=== PATIENT | male | born 2005 | race Caucasian/White ===

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

== ENCOUNTER 2023-01-31 17:57 | Emergency (ER) | payer OTHER, SELFPAY ==
--- NOTE | 2023-01-31 18:07 | ED_ITS ---
HPI - General Adult General Chief complaint: General Medical <POLINA Harrell - Last Filed: 01/31/23 18:08> Stated complaint: Sore throat <POLINA Harrell Last Filed: 01/31/23 18:08> Time Seen by Provider: 01/31/23 18:51 <POLINA Harrell Last Filed: 01/31/23 18:08> Source: patient <POLINA Dior Last Filed: 01/31/23 19:01> Mode of arrival: ambulatory <POLINA Dior Last Filed: 01/31/23 19:01> Limitations: no limitations <POLINA Dior Last Filed: 01/31/23 19:01> History of Present Illness HPI narrative: 17-year-old male presents to the ER for evaluation of difficulty swallowing for the last 10 years. He states that sometimes he gags on his food because of difficulty getting it down. He states consistencies thick like peanut butter or the hardest to swallow. He has no trouble with liquids. He states overall he has been losing weight over the last several years. He has never seen a specialist for this or his regular doctor. He denies any sore throat or neck swelling. He feels a small bump on the right side of his neck that has not gotten any bigger. No overlying redness to it. No voice changes. No fever or chills. <POLINA Dior Last Filed: 01/31/23 19:01> MD complaint: Difficulty swallowing <POLINA Dior Last Filed: 01/31/23 19:01> Onset (ago): year(s) <POLINA Dior Last Filed: 01/31/23 19:01> Location: mouth and neck <POLINA Dior Last Filed: 01/31/23 19:01> Radiation: non-radiation <POLINA Dior Last Filed: 01/31/23 19:01> Severity: moderate <POLINA Dior Last Filed: 01/31/23 19:01> Pain Consistency: intermittent <POLINA Dior Last Filed: 01/31/23 19:01> Relieving factors: none <POLINA Dior - Last Filed: 01/31/23 19:01> Exacerbating factors: eating <POLINA Dior - Last Filed: 01/31/23 19:01> Associated symptoms: denies other symptoms <POLINA Dior - Last Filed: 01/31/23 19:01> Treatments prior to arrival: none <POLINA Dior - Last Filed: 01/31/23 19:01> Related Data Home medications: Previous Rx's Medication Instructions Recorded amoxicillin 500 mg tablet 1,000 mg PO Q8H 7 days #42 tabs 10/13/21 ibuprofen 600 mg tablet 600 mg PO Q8H PRN pain #14 tabs 10/13/21 hokqhugd-agpcuopdn-tjcufhiau 3.5 4 drp otic (ear) left Q8H 10 days 10/13/21 mg-10,000 unit/mL-1 % ear #10 mL drops,susp <POLINA Harrell - Last Filed: 01/31/23 18:08> Allergies/adverse reactions: Allergies Allergy/AdvReac Type Severity Reaction Status Date / Time No Known Allergies Allergy Unverified 07/21/20 17:08 <POLINA Harrell - Last Filed: 01/31/23 18:08> Review of Systems Review of Systems: Yes all other systems are reviewed and are negative <POLINA Dior - Last Filed: 01/31/23 19:01> [facility] Past Medical History Medical History: Medical History (Updated 01/31/23 @ 18:56 by POLINA Dior) No known health problems <POLINA Harrell - Last Filed: 01/31/23 18:08> Social History Social History: Social History Advance Directives: No Advance Directives Information Provided: No <POLINA Harrell Last Filed: 01/31/23 18:08> Physical Exam ED Vital Signs: Vital Signs - 24 hr 01/31/23 18:13 Temperature 98.6 F Pulse Rate 60 Respiratory Rate 16 Blood Pressure 144/81 H Pulse Oximetry 98 Oxygen Delivery Method Room Air BMI result Body Mass Index 16.7 <POLINA Harrell Last Filed: 01/31/23 18:08> Vital Signs - 24 hr 01/31/23 18:13 Temperature 98.6 F Pulse Rate 60 Respiratory Rate 16 Blood Pressure 144/81 H Pulse Oximetry 98 Oxygen Delivery Method Room Air BMI result Body Mass Index 16.7 <POLINA Dior Last Filed: 01/31/23 19:01> Appearance: Alert. Oriented X3. No acute distress. HEENT: normal inspection. PERRLA, EOMI, pharynx normal, no swelling of tonsils. uvula midline. normal voice handling secretions normally. Neck: normal inspecion, trachea midline, small <1cm LN on the anterior cervical chain on the right. normal palpation of the anterior neck, no masses CVS: Normal heart rate and rhythm. Pulses normal. Respiratory: No respiratory distress. Skin: Skin warm and dry. Normal skin color. Normal skin turgor. No rashes. Extremities: normal inspection x4. Neuro: Oriented X 3. No motor deficit. No sensory deficit. <POLINA Dior - Last Filed: 01/31/23 19:01> Course Course Course Narrative: This is an RME: Additional HPI, ROS, PE not included below will be deferred to primary provider. 17-year-old male presents with difficulty swallowing since the age of 7 worsening over the past few days. Telling me he is having difficulties with solids however he is okay with liquids. Reports slight discomfort in the throat particularly on the right-hand side. Physical exam bilateral tonsils edematous no exudates. Midline uvula. Speaking in full sentences. Appears comfortable Will order basic labs, viral testing. <POLINA Harrell - Last Filed: 01/31/23 18:08> Medical Decision Making Medical Decision Making MDM Narrative: 17-year-old male presenting with acute on chronic dysphagia. His physical exam is unremarkable. His lab work is unremarkable. He tested negative for viral and bacterial studies today. He is able to tolerate liquids without issue. He states eating certain solids makes him gag. At this time there is no emergent need for imaging of the neck. He was encouraged follow-up with GI for further evaluation as well as his PCP. All questions were answered he is stable for discharge home. <POLINA Dior - Last Filed: 01/31/23 19:01> Differential Diagnosis Differential Diagnoses: The differential diagnosis associated with the presentation includes <POLINA Dior - Last Filed: 01/31/23 19:01> Dysphagia, esophageal dysmotility, esophageal spasm, esophageal mass, inflammatory disorder, rheumatologic disorder, anxiety <POLINA Dior - Last Filed: 01/31/23 19:01> Lab Data MDM Lab Attestation statement: I reviewed the patient's lab results. <POLINA Dior - Last Filed: 01/31/23 19:01> Unremarkable lab workup <POLINA Dior - Last Filed: 01/31/23 19:01> Result Diagrams: 01/31/23 18:11 01/31/23 18:11 <POLINA Harrell - Last Filed: 01/31/23 18:08> Labs: Lab Results 01/31/23 01/31/23 01/31/23 Range/Units 18:05 18:05 18:05 WBC (4.8-10.8) X10*3/uL RBC (4.60-5.80) X10*6/uL Hgb (14.0-18.0) g/dl Hct (42.0-52.0) % MCV (80.0-98.0) fL MCH (27.0-33.0) pg MCHC (31.0-36.0) g/dl RDW (11.0-16.0) % Plt Count (160-400) X10*3/uL MPV (9.4-12.4) fL Immature Gran % (Auto) (0.0-0.4) % Neut % (Auto) (45-73) % Lymph % (Auto) (20-40) % Caswell % (Auto) (2-11) % Eos % (Auto) (0-4) % Baso % (Auto) (0-2) % Lymph # (Auto) (1.2-4.9) X10*3/uL Caswell # (Auto) (0.1-1.2) X10*3/uL Eos # (Auto) (0.0-0.4) X10*3/uL Baso # (Auto) (0.0-0.2) X10*3/uL Abs Immat Gran (auto) (0.00-0.03) X10*3/uL Absolute Neuts (auto) (2.0-8.3) x10*3/uL Absolute Nucleated RBC (0.0-0.012) X10*3/uL Nucleated RBC % (auto) (0.0-0.2) /100WBC Sodium (135-145) mmol/L Potassium (3.3-5.1) mmol/L Chloride (96-108) mmol/L Carbon Dioxide (22-29) mmol/L Anion Gap (12-20) BUN (9-16) mg/dL Creatinine (0.5-1.4) mg/dL Estim Creat Clear Calc Estimated GFR Random Glucose (60-115) mg/dL Calcium (8.4-10.2) mg/dL Total Bilirubin (0.0-1.0) mg/dL AST (5-37) U/L ALT (0-40) U/L Alkaline Phosphatase (39-117) U/L Total Protein (6.5-8.0) g/dL Albumin (3.5-5.0) g/dL COVID-19 ([facility]) Negative (Negative) COVID-19 Clin Com See Note Monoscreen (Negative) Influenza Type A ([facility]) Negative (Negative) Influenza Type B (ROBERT) Negative (Negative) Influenza A & B Note See Note S. pyogenes GrpA ROBERT Negative (Negative) 01/31/23 01/31/23 01/31/23 Range/Units 18:05 18:11 18:11 WBC 7.6 (4.8-10.8) X10*3/uL RBC 5.30 (4.60-5.80) X10*6/uL Hgb 14.4 (14.0-18.0) g/dl Hct 43.8 (42.0-52.0) % MCV 82.6 (80.0-98.0) fL MCH 27.2 (27.0-33.0) pg MCHC 32.9 (31.0-36.0) g/dl RDW 14.0 (11.0-16.0) % Plt Count 245 (160-400) X10*3/uL MPV 9.3 L (9.4-12.4) fL Immature Gran % (Auto) 0.3 (0.0-0.4) % Neut % (Auto) 53.7 (45-73) % Lymph % (Auto) 34.4 (20-40) % Caswell % (Auto) 9.0 (2-11) % Eos % (Auto) 1.9 (0-4) % Baso % (Auto) 0.7 (0-2) % Lymph # (Auto) 2.6 (1.2-4.9) X10*3/uL Caswell # (Auto) 0.7 (0.1-1.2) X10*3/uL Eos # (Auto) 0.1 (0.0-0.4) X10*3/uL Baso # (Auto) 0.1 (0.0-0.2) X10*3/uL Abs Immat Gran (auto) 0.02 (0.00-0.03) X10*3/uL Absolute Neuts (auto) 4.1 (2.0-8.3) x10*3/uL Absolute Nucleated RBC 0.000 (0.0-0.012) X10*3/uL Nucleated RBC % (auto) 0.0 (0.0-0.2) /100WBC Sodium 140 (135-145) mmol/L Potassium 3.7 (3.3-5.1) mmol/L Chloride 105 (96-108) mmol/L Carbon Dioxide 25 (22-29) mmol/L Anion Gap 14 (12-20) BUN 10 (9-16) mg/dL Creatinine 0.87 (0.5-1.4) mg/dL Estim Creat Clear Calc 113.9 Estimated GFR > 60 Random Glucose 85 (60-115) mg/dL Calcium 9.5 (8.4-10.2) mg/dL Total Bilirubin 1.1 H (0.0-1.0) mg/dL AST 26 (5-37) U/L ALT 25 (0-40) U/L Alkaline Phosphatase 86 (39-117) U/L Total Protein 6.8 (6.5-8.0) g/dL Albumin 4.7 (3.5-5.0) g/dL COVID-19 ([facility]) (Negative) COVID-19 Clin Com Monoscreen Negative (Negative) Influenza Type A ([facility]) (Negative) Influenza Type B ([facility]ERT) (Negative) Influenza A & B Note S. pyogenes GrpA ROBERT (Negative) <POLINA Harrell - Last Filed: 01/31/23 18:08> Lab Results 01/31/23 01/31/23 01/31/23 Range/Units 18:05 18:05 18:05 WBC (4.8-10.8) X10*3/uL RBC (4.60-5.80) X10*6/uL Hgb (14.0-18.0) g/dl Hct (42.0-52.0) % MCV (80.0-98.0) fL MCH (27.0-33.0) pg MCHC (31.0-36.0) g/dl RDW (11.0-16.0) % Plt Count (160-400) X10*3/uL MPV (9.4-12.4) fL Immature Gran % (Auto) (0.0-0.4) % Neut % (Auto) (45-73) % Lymph % (Auto) (20-40) % Caswell % (Auto) (2-11) % Eos % (Auto) (0-4) % Baso % (Auto) (0-2) % Lymph # (Auto) (1.2-4.9) X10*3/uL Caswell # (Auto) (0.1-1.2) X10*3/uL Eos # (Auto) (0.0-0.4) X10*3/uL Baso # (Auto) (0.0-0.2) X10*3/uL Abs Immat Gran (auto) (0.00-0.03) X10*3/uL Absolute Neuts (auto) (2.0-8.3) x10*3/uL Absolute Nucleated RBC (0.0-0.012) X10*3/uL Nucleated RBC % (auto) (0.0-0.2) /100WBC Sodium (135-145) mmol/L Potassium (3.3-5.1) mmol/L Chloride (96-108) mmol/L Carbon Dioxide (22-29) mmol/L Anion Gap (12-20) BUN (9-16) mg/dL Creatinine (0.5-1.4) mg/dL Estim Creat Clear Calc Estimated GFR Random Glucose (60-115) mg/dL Calcium (8.4-10.2) mg/dL Total Bilirubin (0.0-1.0) mg/dL AST (5-37) U/L ALT (0-40) U/L Alkaline Phosphatase (39-117) U/L Total Protein (6.5-8.0) g/dL Albumin (3.5-5.0) g/dL COVID-19 ([facility]) Negative (Negative) COVID-19 Clin Com See Note Monoscreen (Negative) Influenza Type A ([facility]) Negative (Negative) Influenza Type B ([facility]ERT) Negative (Negative) Influenza A & B Note See Note S. pyogenes GrpA ROBERT Negative (Negative) 01/31/23 01/31/23 01/31/23 Range/Units 18:05 18:11 18:11 WBC 7.6 (4.8-10.8) X10*3/uL RBC 5.30 (4.60-5.80) X10*6/uL Hgb 14.4 (14.0-18.0) g/dl Hct 43.8 (42.0-52.0) % MCV 82.6 (80.0-98.0) fL MCH 27.2 (27.0-33.0) pg MCHC 32.9 (31.0-36.0) g/dl RDW 14.0 (11.0-16.0) % Plt Count 245 (160-400) X10*3/uL MPV 9.3 L (9.4-12.4) fL Immature Gran % (Auto) 0.3 (0.0-0.4) % Neut % (Auto) 53.7 (45-73) % Lymph % (Auto) 34.4 (20-40) % Caswell % (Auto) 9.0 (2-11) % Eos % (Auto) 1.9 (0-4) % Baso % (Auto) 0.7 (0-2) % Lymph # (Auto) 2.6 (1.2-4.9) X10*3/uL Caswell # (Auto) 0.7 (0.1-1.2) X10*3/uL Eos # (Auto) 0.1 (0.0-0.4) X10*3/uL Baso # (Auto) 0.1 (0.0-0.2) X10*3/uL Abs Immat Gran (auto) 0.02 (0.00-0.03) X10*3/uL Absolute Neuts (auto) 4.1 (2.0-8.3) x10*3/uL Absolute Nucleated RBC 0.000 (0.0-0.012) X10*3/uL Nucleated RBC % (auto) 0.0 (0.0-0.2) /100WBC Sodium 140 (135-145) mmol/L Potassium 3.7 (3.3-5.1) mmol/L Chloride 105 (96-108) mmol/L Carbon Dioxide 25 (22-29) mmol/L Anion Gap 14 (12-20) BUN 10 (9-16) mg/dL Creatinine 0.87 (0.5-1.4) mg/dL Estim Creat Clear Calc 113.9 Estimated GFR > 60 Random Glucose 85 (60-115) mg/dL Calcium 9.5 (8.4-10.2) mg/dL Total Bilirubin 1.1 H (0.0-1.0) mg/dL AST 26 (5-37) U/L ALT 25 (0-40) U/L Alkaline Phosphatase 86 (39-117) U/L Total Protein 6.8 (6.5-8.0) g/dL Albumin 4.7 (3.5-5.0) g/dL COVID-19 ([facility]) (Negative) COVID-19 Clin Com Monoscreen Negative (Negative) Influenza Type A ([facility]) (Negative) Influenza Type B ([facility]) (Negative) Influenza A & B Note S. pyogenes GrpA ROBERT (Negative) <POLINA Dior - Last Filed: 01/31/23 19:01> Critical Care Time Critical Care Time Critical Care Time: No <POLINA Dior - Last Filed: 01/31/23 19:01> Discharge Plan Discharge Clinical Impression: Dysphagia <POLINA Harrell - Last Filed: 01/31/23 18:08> Patient Disposition: Home, Self-Care <POLINA Harrell - Last Filed: 01/31/23 18:08> Instructions: Dysphagia (ED), Soft Diet (ED) <POLINA Harrell - Last Filed: 01/31/23 18:08> Additional Instructions: Your lab workup today was unremarkable. Your negative for COVID, flu, strep, mononucleosis. Recommend following up with the GI specialist for further evaluation of your swallowing issues. Recommend sticking to a soft diet. Recommend protein shakes to maintain your caloric intake. Stay hydrated. If you develop new or worsening symptoms call 911 or come back to the ER for further evaluation. <POLINA Harrell - Last Filed: 01/31/23 18:08> Prescriptions: No Action xsrklwej-icybqftpt-WL 3.5-10,000-1 mg/mL-unit/mL-% drops,suspension 4 drp otic (ear) left Q8H 10 Days Qty: 10 0RF amoxicillin 500 mg tablet 1,000 mg PO Q8H 7 Days Qty: 42 0RF ibuprofen 600 mg tablet 600 mg PO Q8H PRN (Reason: pain) Qty: 14 0RF <POLINA Harrell - Last Filed: 01/31/23 18:08> Referrals: [facility] [place]Provider Group] (dysphagia w/ weight loss) <POLINA Harrell - Last Filed: 01/31/23 18:08>
[2023-01-31 18:08] VITALS: BMI 16.7
[2023-01-31 18:13] VITALS: BP 144/81; PULSE 60; RESP 16; TEMP 37; O2SAT 98
[2023-01-31 18:16] LABS: MANUAL DIFF FLAG NO
[2023-01-31 18:17] LABS: Basophils Absolute Auto 0.1 X10*3/uL (0.0-0.2); Basophils Percent Auto 0.7 % (0-2); Eosinophils Absolute Auto 0.1 X10*3/uL (0.0-0.4); Eosinophils Percent Auto 1.9 % (0-4); Hematocrit 43.8 % (42.0-52.0); Hemoglobin 14.4 g/dl (14.0-18.0); Imm Gran Abs Auto 0.02 X10*3/uL (0.00-0.03); Imm Gran Pct Auto 0.3 % (0.0-0.4); Lymphocytes Absolute Auto 2.6 X10*3/uL (1.2-4.9); Lymphocytes Percent Auto 34.4 % (20-40); Mean Corpuscular HGB Conc 32.9 g/dl (31.0-36.0); Mean Corpuscular Hemoglobin 27.2 pg (27.0-33.0); Mean Corpuscular Volume 82.6 fL (80.0-98.0); Mean Platelet Volume 9.3 fL (9.4-12.4); Monocytes Absolute Auto 0.7 X10*3/uL (0.1-1.2); Neutrophils Absolute Auto 4.1 x10*3/uL (2.0-8.3); Neutrophils Percent Auto 53.7 % (45-73); Platelet Count 245 X10*3/uL (160-400); White Blood Count 7.6 X10*3/uL (4.8-10.8)
[2023-01-31 18:29] LABS: IDNOW Serial# 08D9AD1C; Monotest Negative (Negative); Strep A Nucleic Acid Negative (Negative)
[2023-01-31 18:33] LABS: Alanine Aminotransferase 25 U/L (0-40); Albumin Level 4.7 g/dL (3.5-5.0); Alkaline Phosphatase 86 U/L (39-117); Anion Gap 14 (12-20); Aspartate Amino Transferase 26 U/L (5-37); Bilirubin Total 1.1 mg/dL (0.0-1.0); Blood Urea Nitrogen 10 mg/dL (9-16); Calcium 9.5 mg/dL (8.4-10.2); Carbon Dioxide 25 mmol/L (22-29); Chloride 105 mmol/L (96-108); Creatinine Clr Calc Pharmacy 113.9; Estimated Glomerular Filt Rate > 60; Glucose Random 85 mg/dL (60-115); Potassium 3.7 mmol/L (3.3-5.1); Sodium 140 mmol/L (135-145); Total Protein 6.8 g/dL (6.5-8.0)
[2023-01-31 18:37] LABS: COVID-19 Test Negative (Negative); IDNOW Serial# BCCEAD1C
[2023-01-31 18:38] LABS: IDNOW Serial# 9DB6401D; Influenza A Negative (Negative); Influenza B2 Negative (Negative)
== END 2023-01-31 19:03 | disposition home or self-care (01) ==
PROVIDERS: Physician Assistant; Emergency Provider Emergency Medicine Emergency Medical Services
DX: J02.8 Acute pharyngitis due to other specified organisms (principal); R13.10 Dysphagia, unspecified; Z20.822 Contact with and (suspected) exposure to COVID-19; Z20.828 Contact with and (suspected) exposure to other viral communicable diseases; Z79.899 Other long term (current) drug therapy
CPT/HCPCS: 36415; 80053; 85025; 86308; 87502; 87635; 87651; 99282; 99283

== ENCOUNTER 2023-03-29 16:00 | Emergency (ER) | payer OTHER, SELFPAY ==
[2023-03-29 16:31] VITALS: BP 134/71; PULSE 72; RESP 18; TEMP 36.2; O2SAT 99; BMI 19.9
--- NOTE | 2023-03-29 16:31 | ED.GENADULT ---
HPI - General Adult General Chief complaint: General Medical Stated complaint: abd pain/anxiety Time Seen by Provider: 03/29/23 17:44 Source: patient Mode of arrival: ambulatory Limitations: no limitations History of Present Illness HPI narrative: Patient is history of anxiety complaining of today no vomiting at this time feels hungry no fever no chills no urine complaints complaining of small lymph node in the neck also bilateral groin area no fever no chills no urine symptoms patient feels hungry does have increased anxiety Related Data Previous Rx's Medication Instructions Recorded amoxicillin 500 mg tablet 1,000 mg PO Q8H 7 days #42 tabs 10/13/21 ibuprofen 600 mg tablet 600 mg PO Q8H PRN pain #14 tabs 10/13/21 pcvehkix-cnkinofvf-yikerjfpn 3.5 4 drp otic (ear) left Q8H 10 days 10/13/21 mg-10,000 unit/mL-1 % ear #10 mL drops,susp hydroxyzine HCl 25 mg tablet 25 mg PO TID PRN anxiety #30 tabs 03/29/23 Allergies Allergy/AdvReac Type Severity Reaction Status Date / Time No Known Allergies Allergy Unverified 07/21/20 17:08 Review of Systems Review of Systems: Yes all other systems are reviewed and are negative PMFSH Past Medical History Medical History No known health problems Social History Social History Smoked in Last 30 Days: No Advance Directives: No Advance Directives Information Provided: No Physical Exam ED Vital Signs: Vital Signs - 24 hr 03/29/23 16:31 Temperature 97.1 F Pulse Rate 72 Respiratory Rate 18 Blood Pressure 134/71 Pulse Oximetry 99 Oxygen Delivery Method Room Air BMI result Body Mass Index 19.9 Appearance: Alert. Oriented X3. No acute distress. Anxious ENT: Pharynx normal. Oral Mucosa moist Neck: Normal inspection. Neck supple. CVS: Normal heart rate and rhythm. Pulses normal. Respiratory: No respiratory distress. Equal air entry bilateral, no wheezing/rales/rhonchi Abdomen: Soft and nontender no rebound tenderness or guard mild discomfort in mid abdomen, Bowel sounds are present, no mass palpable, no CVA tenderness Skin: Skin warm and dry. Normal skin color. Normal skin turgor. Extremities: No lower extremity edema. No calf tenderness bilateral inguinal lymph nodes less than 1 cm nontender Neuro: Oriented X 3. No motor deficit. Course Course Course Narrative: RME performed by [place] PA-C. Patient is a 17 year old assigned male at presenting to the emergency department with abdominal pain. Labs ordered. Patient placed back in the waiting room pending room availability and results. Medications Administered Discontinued Medications Generic Name Dose Route Start Last Admin Trade Name Faith PRN Reason Stop Dose Admin Hydroxyzine HCl 25 mg 03/29/23 17:52 03/29/23 18:24 Hydroxyzine Hcl 25 Mg Tablet PO 03/29/23 17:53 25 mg ONCE ONE Administration Medical Decision Making Medical Decision Making MDM Narrative: Patient has stable labs symptoms likely from anxiety Lab Data MDM Lab Attestation statement: I reviewed the patient's lab results. 03/29/23 16:49 03/29/23 16:49 Labs: Lab Results 03/29/23 03/29/23 03/29/23 Range/Units 16:49 16:49 16:49 WBC 7.0 (4.8-10.8) X10*3/uL RBC 5.83 H (4.60-5.80) X10*6/uL Hgb 16.4 (14.0-18.0) g/dl Hct 47.8 (42.0-52.0) % MCV 82.0 (80.0-98.0) fL MCH 28.1 (27.0-33.0) pg MCHC 34.3 (31.0-36.0) g/dl RDW 13.2 (11.0-16.0) % Plt Count 249 (160-400) X10*3/uL MPV 9.8 (9.4-12.4) fL Immature Gran % (Auto) 0.4 (0.0-0.4) % Neut % (Auto) 68.4 (45-73) % Lymph % (Auto) 23.2 (20-40) % [place] % (Auto) 7.0 (2-11) % Eos % (Auto) 0.3 (0-4) % Baso % (Auto) 0.7 (0-2) % Lymph # (Auto) 1.6 (1.2-4.9) X10*3/uL [place] # (Auto) 0.5 (0.1-1.2) X10*3/uL Eos # (Auto) 0.0 (0.0-0.4) X10*3/uL Baso # (Auto) 0.1 (0.0-0.2) X10*3/uL Abs Immat Gran (auto) 0.03 (0.00-0.03) X10*3/uL Absolute Neuts (auto) 4.8 (2.0-8.3) x10*3/uL Absolute Nucleated RBC 0.000 (0.0-0.012) X10*3/uL Nucleated RBC % (auto) 0.0 (0.0-0.2) /100WBC Sodium 141 (135-145) mmol/L Potassium 5.0 D (3.3-5.1) mmol/L Chloride 106 (96-108) mmol/L Carbon Dioxide 25 (22-29) mmol/L Anion Gap 15 (12-20) BUN 13 (9-16) mg/dL Creatinine 0.94 (0.5-1.4) mg/dL Estim Creat Clear Calc 125.5 Estimated GFR > 60 Random Glucose 103 (60-115) mg/dL Calcium 10.5 H D (8.4-10.2) mg/dL Magnesium 2.2 (1.6-2.6) mg/dL Total Bilirubin 1.8 H (0.0-1.0) mg/dL AST 19 (5-37) U/L ALT 18 (0-40) U/L Alkaline Phosphatase 94 (39-117) U/L Total Protein 7.8 (6.5-8.0) g/dL Albumin 5.1 H (3.5-5.0) g/dL Urine Color Dark Yellow Urine Appearance Clear Urine pH 5.5 (5.0-9.0) Ur Specific [place] >= 1.030 H (1.005-1.025) Urine Protein Negative (Neg-Trace) mg/dL Urine Glucose (UA) Negative (Negative) mg/dL Urine Ketones 80 (Negative) mg/dL Urine Blood Negative (Negative) Urine Nitrite Negative (Negative) Ur Leukocyte Esterase Trace H (Negative) Urine RBC 0-2 (0-2) /HPF Urine WBC 0-5 (0-5) /HPF Ur Squamous Epith Cells 0-2 (0-2) /HPF Urine Bacteria None Seen (None Seen) Hyaline Casts 3-5 (0-2) /LPF Discharge Plan Discharge Clinical Impression: Anxiety Patient Disposition: Home, Self-Care Instructions: Anxiety (ED) Additional Instructions: Take medication for anxiety as prescribed Follow the PCP as scheduled Prescriptions: New hydroxyzine HCl 25 mg tablet 25 mg PO TID PRN (Reason: anxiety) Qty: 30 0RF No Action othkjucd-tuqzqdivh-KW 3.5-10,000-1 mg/mL-unit/mL-% drops,suspension 4 drp otic (ear) left Q8H 10 Days Qty: 10 0RF amoxicillin 500 mg tablet 1,000 mg PO Q8H 7 Days Qty: 42 0RF ibuprofen 600 mg tablet 600 mg PO Q8H PRN (Reason: pain) Qty: 14 0RF
[2023-03-29 16:53] LABS: MANUAL DIFF FLAG NO
[2023-03-29 16:57] LABS: Basophils Absolute Auto 0.1 X10*3/uL (0.0-0.2); Basophils Percent Auto 0.7 % (0-2); Eosinophils Percent Auto 0.3 % (0-4); Hematocrit 47.8 % (42.0-52.0); Hemoglobin 16.4 g/dl (14.0-18.0); Imm Gran Abs Auto 0.03 X10*3/uL (0.00-0.03); Imm Gran Pct Auto 0.4 % (0.0-0.4); Lymphocytes Absolute Auto 1.6 X10*3/uL (1.2-4.9); Lymphocytes Percent Auto 23.2 % (20-40); Mean Corpuscular HGB Conc 34.3 g/dl (31.0-36.0); Mean Corpuscular Hemoglobin 28.1 pg (27.0-33.0); Mean Platelet Volume 9.8 fL (9.4-12.4); Monocytes Absolute Auto 0.5 X10*3/uL (0.1-1.2); Neutrophils Absolute Auto 4.8 x10*3/uL (2.0-8.3); Neutrophils Percent Auto 68.4 % (45-73); Platelet Count 249 X10*3/uL (160-400); Red Blood Count 5.83 X10*6/uL (4.60-5.80); Red Cell Distribution Width 13.2 % (11.0-16.0)
[2023-03-29 16:59] LABS: Appearance Urine Clear; Color Urine Dark Yellow; Glucose Urine UA Negative (Negative); Leukocyte Esterase Urine Trace (Negative); Nitrite Urine Negative (Negative); PH 5.5 (5.0-9.0); Specific Gravity - Urine >= 1.030 (1.005-1.025); UMIC TRIGGER UACC YES; Urine Blood Negative (Negative); Urine Ketones 80 mg/dL (Negative); Urine Protein Negative (Neg-Trace)
[2023-03-29 17:02] LABS: Bacteria Urine None Seen (None Seen); RBC Urine 0-2 /HPF (0-2); Squamous Epithelial Cell Urine 0-2 /HPF (0-2); WBC Urine 0-5 /HPF (0-5)
[2023-03-29 17:15] LABS: Alanine Aminotransferase 18 U/L (0-40); Albumin Level 5.1 g/dL (3.5-5.0); Alkaline Phosphatase 94 U/L (39-117); Anion Gap 15 (12-20); Aspartate Amino Transferase 19 U/L (5-37); Bilirubin Total 1.8 mg/dL (0.0-1.0); Blood Urea Nitrogen 13 mg/dL (9-16); Calcium 10.5 mg/dL (8.4-10.2); Carbon Dioxide 25 mmol/L (22-29); Chloride 106 mmol/L (96-108); Creatinine Clr Calc Pharmacy 125.5; Estimated Glomerular Filt Rate > 60; Glucose Random 103 mg/dL (60-115); Magnesium 2.2 mg/dL (1.6-2.6); Sodium 141 mmol/L (135-145); Total Protein 7.8 g/dL (6.5-8.0)
[2023-03-29] MEDS: hydrOXYzine HCL 25 MG TABLET PO (18:24)
--- NOTE | 2023-03-29 18:26 | PC.NURSE ---
Pt came today with concerns about still not being able to swallow, and new lumps on his neck and groin. Provider prescribed anxiety medications, pt encouraged to follow up outpt.
== END 2023-03-29 18:38 | disposition home or self-care (01) ==
PROVIDERS: Physician Assistant Medical; Emergency Provider Internal Medicine
DX: F41.9 Anxiety disorder, unspecified (principal)
CPT/HCPCS: 36415; 80053; 81001; 81003; 83735; 85025; 99283; 99284

== ENCOUNTER 2023-04-22 11:06 | Outpatient (REF) | payer OTHER, SELFPAY ==
[2023-04-22 13:03] LABS: Thyroid Stimulating Hormone 1.06 uIU/mL (0.32-4.0)
[2023-04-23 18:24] LABS: Transglutaminase IgA <1.0 U/mL
[2023-04-24 04:18] LABS: HBc Num1 0.04 S/CO (0.00-0.79); HBsAGNum1 0.36 S/CO (0.00-0.99); HIV AB/AG Nonreactive (Nonreactive); HIV Num 1 0.16 S/CO (0.00-0.99); Hepatitis B Core Antibody Nonreactive (Nonreactive); Hepatitis B Surface Antigen Negative (Negative); ~HepC Num1 0.07 S/CO (0.00-0.79); ~Hepatitis A Antibody IgM Nonreactive (Nonreactive); ~Hepatitis B Surface Antibody NONREACTIVE (Nonreactive); ~Hepatitis C Antibody Nonreactive (Nonreactive)
[2023-04-24 15:53] LABS: TS Negative Control Passed; TS Panel A 0; TS Panel B 3; TS Positive Control Passed; TSpotTB Negative (Negative)
[2023-04-26 14:24] LABS: Endomysial IgA Antibody Negative (Negative)
== END 2023-04-22 11:07 | disposition home or self-care (01) ==
LOC: HO.LAB 11:06
PROVIDERS: Visit Provider Physician Assistant
DX: Z11.4 Encounter for screening for human immunodeficiency virus [HIV] (principal); Z11.1 Encounter for screening for respiratory tuberculosis; R05.9 Cough, unspecified; R63.4 Abnormal weight loss; R19.8 Other specified symptoms and signs involving the digestive system and abdomen; R19.7 Diarrhea, unspecified; R79.89 Other specified abnormal findings of blood chemistry; R13.10 Dysphagia, unspecified; F41.9 Anxiety disorder, unspecified
CPT/HCPCS: 36415; 84443; 86231; 86364; 86481; 86704; 86706; 86709; 86803; 87340; 87389; 99202

== ENCOUNTER 2023-11-07 09:22 | Emergency (ER) | payer SELFPAY ==
[2023-11-07 09:37] VITALS: BP 150/61; PULSE 82; RESP 16; TEMP 37.1; O2SAT 98; BMI 22.7
--- NOTE | 2023-11-07 11:27 | ED.DENTAL ---
HPI - Dental/Oral General Chief complaint: Dental/Oral Stated complaint: Swelling/soreness left side of face Time Seen by Provider: 11/07/23 10:28 Source: patient and RN notes reviewed Mode of arrival: ambulatory Limitations: no limitations History of Present Illness HPI Narrative: This is a 18-year-old male presenting to the emergency department with complaints of left-sided jaw swelling x 4 days. Patient reports that 4 days ago he had noticed left-sided facial swelling as well as left lower dental pain. He states that he has problems with his teeth and is scheduled to get a root canal. He denies any fevers, chills, chest pain, shortness breath, abdominal pain, nausea, vomiting or diarrhea. Denies taking any medications at home to treat his current symptoms. He states that he was supposed to be on antibiotics recently for his dental infection however he was unable to get to the pharmacy due to transportation issues. He has a follow-up with his dentist on November 18. No other complaints or concerns at this time. MD Complaint: tooth pain Location: Tooth # (17, 18 ) Onset (ago): day(s) Duration: constant Severity: moderate Relieving factors: nothing Exacerbating factors: nothing Context: history of dental caries and poor dental care Treatment prior to arrival: none Related Data Previous Rx's Medication Instructions Recorded ibuprofen 600 mg tablet 600 mg PO Q8H PRN pain #14 tabs 10/13/21 yahgurjq-hlvlrbkjy-lydmcmfhl 3.5 4 drp otic (ear) left Q8H 10 days 10/13/21 mg-10,000 unit/mL-1 % ear #10 mL drops,susp hydroxyzine HCl 25 mg tablet 25 mg PO TID PRN anxiety #30 tabs 03/29/23 famotidine 40 mg tablet 40 mg PO DAILY #30 tabs 04/22/23 acetaminophen 500 mg tablet 500 mg PO Q6H PRN pain #30 tabs 11/07/23 (Tylenol Extra Strength) amoxicillin 875 mg-potassium 1 tab PO BID 7 days #14 tabs 11/07/23 clavulanate 125 mg tablet ibuprofen 600 mg tablet 600 mg PO Q6H PRN pain #30 tabs 11/07/23 Allergies Allergy/AdvReac Type Severity Reaction Status Date / Time No Known Allergies Allergy Verified 04/22/23 11:10 Review of Systems Review of Systems: Yes all other systems are reviewed and are negative Constitutional: Constitutional: Reports as per [facility] Past Medical History Attestation statement: The following information was validated with the patient. Onset Date is defined in the Problem List Problems that require an onset date and time if occurred within 24 hrs of arrival to the ED Aortic Dissection and Rupture; Neurologic impairment; Cardiopulmonary Arrest; Endotracheal Intubation; Insertion or Replacement of Mechanical Circulatory Assist Device Medical History Dysphagia No known health problems Social History Social History Household Members: Family Alcohol intake: never Patient Tobacco Use Status: Never used Tobacco Substance Use Type: Marijuana Advance Directives: No Physical Exam Vital Signs: Vital Signs: Last Vital Signs Temp 98.3 F 11/07/23 11:35 Pulse 88 11/07/23 11:35 Resp 16 11/07/23 11:35 BP 148/64 H 11/07/23 11:35 Pulse Ox 98 11/07/23 11:35 O2 Del Method Room Air 11/07/23 11:35 BMI result Body Mass Index 22.7 Const: General: cooperative, comfortable and no acute distress Orientation/consciousness: patient oriented x3 Limitations: no limitations HEENT: Other: No mandibular pain noted Head: Yes normal to inspection, Yes normocephalic and Yes atraumatic Ears: hearing grossly normal bilaterally and TM's normal bilaterally General nose exam: Normal external nose present Face and sinus: Yes normal facial exam Mouth: Normal oral and palatal mucosa present, oropharynx normal and moist mucous membranes Teeth image: 1. Left lower dental decay noted to tooth 17. And 18, with mild tenderness palpation along the outer gumline, no fluctuance or induration. No obvious dental abscess identified. Left-sided lower facial swelling noted. Throat: Yes posterior oropharynx normal Eyes: General: appearance normal, both eyes and all related structures Eyelids: Yes eyelids normal Conjunctivae: conjunctivae normal Sclerae: sclerae normal Pupils: Equal, round and reactive pupils present EOM: EOMs intact bilaterally Neck: Neck: Yes normal visual inspection, Yes full ROM and Yes no lymphadenopathy Lymphatic: no lymphadenopathy noted Chest: Chest palpation & inspection: normal inspection of the chest Resp: Effort & Inspection: normal respiratory effort and able to speak in complete sentences Auscultation: clear to auscultation bilaterally, no crackles, no rales, no rhonchi and no wheezes Cardio: Rate: regular rate Rhythm: regular rhythm Heart sounds: S1 normal heart sound present and S2 normal heart sound present GI: Inspection: Yes normal to inspection Skin: General skin exam: no rashes or lesions noted Trauma: no lacerations or abrasions Wounds: no wounds Neuro: General: patient oriented x3 and moves all extremities Cranial nerves: Yes Equal, round and reactive pupils present Extrem: General: Yes normal to inspection Right upper extremity: normal to inspection Left upper extremity: normal to inspection Right lower extremity: normal to inspection Left lower extremity: normal to inspection Medical Decision Making Medical Decision Making [facility] Narrative: This is a 18-year-old male presenting to the emergency department for evaluation of left lower jaw swelling and dental pain for the last 4 days. Known problems with his dentition and has a dental appointment on November 18. No fevers or chills. No identifiable dental abscess requiring I and D today. Will treat with course of antibiotics, ibuprofen and Tylenol. Patient understands and agrees with plan. No trismus, drooling or dysphonia. No other complaints or concerns this time. Differential Diagnosis Differential Diagnoses: The differential diagnosis associated with the presentation includes Dental decay, dental caries, dental abscess, facial pain Discharge Plan Discharge Clinical Impression: Dental caries, Dental infection Patient Disposition: Home, Self-Care Instructions: Dental Abscess (ED) Additional Instructions: Your seen in the emergency department due to left-sided facial swelling. This facial swelling is likely due to a tooth infection. You need to be put on antibiotics. Please take full course even if you are feeling better. You may also take prescribed ibuprofen and Tylenol as needed for pain and symptoms. If any new or worsening symptoms occur including but not limited to difficulty swallowing, breathing, worsening facial swelling, worsening dental pain, please return for re-evaluation. You need to follow-up with your dentist. Prescriptions: New amoxicillin-pot clavulanate 875-125 mg tablet 1 tab PO BID 7 Days Qty: 14 0RF ibuprofen 600 mg tablet 600 mg PO Q6H PRN (Reason: pain) Qty: 30 0RF acetaminophen [Tylenol Extra Strength] 500 mg tablet 500 mg PO Q6H PRN (Reason: pain) Qty: 30 0RF No Action ptjgqdav-yoncjnrno-LY 3.5-10,000-1 mg/mL-unit/mL-% drops,suspension 4 drp otic (ear) left Q8H 10 Days Qty: 10 0RF ibuprofen 600 mg tablet 600 mg PO Q8H PRN (Reason: pain) Qty: 14 0RF hydroxyzine HCl 25 mg tablet 25 mg PO TID PRN (Reason: anxiety) Qty: 30 0RF famotidine 40 mg tablet 40 mg PO DAILY Qty: 30 5RF Interventions: ED Discharge Assessment Last Done: 11/07/23 11:38
[2023-11-07 11:35] VITALS: BP 148/64; PULSE 88; RESP 16; TEMP 36.8; O2SAT 98
--- NOTE | 2023-11-07 11:37 | PC.NURSE ---
patient a&ox3, c/o lt face pain 8/10 notable swelling to left cheek area, pt to discharge to home with abx and pain medications.
== END 2023-11-07 11:41 | disposition home or self-care (01) ==
PROVIDERS: Emergency Provider Student in an Organized Health Care Education/Training Program
DX: K02.9 Dental caries, unspecified (principal); K04.7 Periapical abscess without sinus; F12.90 Cannabis use, unspecified, uncomplicated
CPT/HCPCS: 99283

== ENCOUNTER 2024-09-04 18:53 | Emergency (ER) | payer OTHER, SELFPAY ==
--- NOTE | ~2024-09-04 | XR_ITS ---
EXAMINATION: XR CHEST CLINICAL INFORMATION: Shortness of breath, asthma COMPARISON: None available. TECHNIQUE: 2 views of the chest were obtained. FINDINGS: No significant abnormality is noted involving the heart, lungs, mediastinum, bony thorax or soft tissues. XR/XR chest 2V IMPRESSION: No acute processes. Electronically signed by: Williams Olsen MD 09/04/2024 07:53 PM EDT RP
[2024-09-04 19:02] VITALS: BP 136/76; PULSE 81; RESP 20; TEMP 37; O2SAT 100; BMI 20.6
--- NOTE | 2024-09-04 19:08 | ED_ITS ---
HPI - SOB/Dyspnea General Chief Complaint: Dyspnea Stated Complaint: sob Time Seen by Provider: 09/04/24 22:06 Source: patient Mode of arrival: ambulatory Limitations: no limitations History of Present Illness ED Provider: lolita THOMAS Narrative: Patient's history of anxiety for last 3 days been feeling more anxious and short of breath saturating 100% on arrival patient had chest x-ray labs done prior to my evaluation which was normal Related Data Previous Rx's ?Medication ?Instructions ?Recorded ibuprofen 600 mg tablet 600 mg PO Q8H PRN pain #14 tabs 10/13/21 otcqskqb-lzslqaijm-zdaivosou 3.5 4 drp otic (ear) left Q8H 10 days 10/13/21 mg-10,000 unit/mL-1 % ear #10 mL drops,susp hydroxyzine HCl 25 mg tablet 25 mg PO TID PRN anxiety #30 tabs 03/29/23 famotidine 40 mg tablet 40 mg PO DAILY #30 tabs 04/22/23 acetaminophen 500 mg tablet 500 mg PO Q6H PRN pain #30 tabs 11/07/23 (Tylenol Extra Strength) amoxicillin 875 mg-potassium 1 tab PO BID 7 days #14 tabs 11/07/23 clavulanate 125 mg tablet ibuprofen 600 mg tablet 600 mg PO Q6H PRN pain #30 tabs 11/07/23 hydroxyzine HCl 25 mg tablet 25 mg PO TID PRN anxiety #30 tabs 09/05/24 Allergies Allergy/AdvReac Type Severity Reaction Status Date / Time No Known Allergies Allergy Verified 09/04/24 19:07 Review of Systems 2 Review of Systems: Yes all other systems are reviewed and are negative PMFSH Past Medical History Medical History Dysphagia No known health problems Social History Social History Household Members: Family Alcohol intake: current Patient Tobacco Use Status: Never used Tobacco Smoked in Last 30 Days: Yes Use of substances other than those prescribed or required for medical reasons: Yes Substance Use Type: Marijuana Any prior treatment program specific to substance use: No Advance Directives: No Advance Directives Information Provided: No Do you have a plan to hurt others: No Plan Physical Exam 2 Vital Signs: Vital Signs: Last Vital Signs Temp 97.4 F 09/05/24 00:40 Pulse 69 09/05/24 00:40 Resp 19 09/05/24 00:40 BP 125/76 09/05/24 00:40 Pulse Ox 100 09/05/24 00:40 O2 Del Method Room Air 09/05/24 00:40 BMI result Body Mass Index 20.6 Appearance: Alert. Oriented X3. No acute distress. Anxious Eyes: No pallor or ENT: Pharynx normal. Oral Mucosa moist Neck: Normal inspection. Neck supple. CVS: Normal heart rate and rhythm. Pulses normal. Respiratory: No respiratory distress. Equal air entry bilateral, no wheezing/rales/rhonchi Abdomen: Soft and nontender. Bowel sounds are present, Skin: Skin warm and dry. Normal skin color. Normal skin turgor. Extremities: No lower extremity edema. No calf tenderness Neuro: Oriented X 3. Course Course Course Narrative: This is a Rapid Medical Examination (RME) performed by Deven Worthington PA-C in triage. Full HPI, ROS, assessment and treatment plan per primary provider in the Main ED. 18 yo male hx asthma here for eval of sob x3 days. states when my anxiety goes away I no longer feel short of breath . seen at for same- told is was anxiety related. denies chest pain, N/V, headache. Plan: labs, viral serology, ekg, cxr Medications Administered Discontinued Medications Generic Name Dose Route Start Last Admin Trade Name Freq PRN Reason Stop Dose Admin Hydroxyzine HCl 50 mg 09/04/24 23:22 09/04/24 23:26 Hydroxyzine Hcl 50 Mg Tablet PO 09/04/24 23:23 50 mg ONCE ONE Administration Lorazepam 1 mg 09/04/24 22:27 09/04/24 22:53 Lorazepam 1 Mg Tablet PO 09/04/24 22:28 1 mg ONCE ONE Administration Medical Decision Making Medical Decision Making [facility] Narrative: Patient's anxiety with subjective shortness a breath saturating 98%-100% at room air will discharge patient on hydroxyzine Lab Data [facility] Lab Attestation statement: I reviewed the patient's lab results. 09/04/24 19:28 09/04/24 19:28 Labs: Lab Results 09/04/24 Range/Units 19:28 WBC 8.9 (4.8-10.8) X10*3/uL RBC 6.21 H (4.60-5.80) X10*6/uL Hgb 17.0 (14.0-18.0) g/dl Hct 48.2 (42.0-52.0) % MCV 77.6 L (80.0-98.0) fL MCH 27.4 (27.0-33.0) pg MCHC 35.3 (31.0-36.0) g/dl RDW 13.4 (11.0-16.0) % Plt Count 223 (160-400) X10*3/uL MPV 10.0 (9.4-12.4) fL Immature Gran % (Auto) 0.3 (0.0-0.4) % Neut % (Auto) 70.7 (45-73) % Lymph % (Auto) 19.2 L (20-40) % [place] % (Auto) 8.2 (2-11) % Eos % (Auto) 0.8 (0-4) % Baso % (Auto) 0.8 (0-2) % Lymph # (Auto) 1.7 (1.2-4.9) X10*3/uL [place] # (Auto) 0.7 (0.1-1.2) X10*3/uL Eos # (Auto) 0.1 (0.0-0.4) X10*3/uL Baso # (Auto) 0.1 (0.0-0.2) X10*3/uL Abs Immat Gran (auto) 0.03 (0.00-0.03) X10*3/uL Absolute Neuts (auto) 6.3 (2.0-8.3) x10*3/uL Absolute Nucleated RBC 0.000 (0.0-0.012) X10*3/uL Nucleated RBC % (auto) 0.0 (0.0-0.2) /100WBC Sodium 142 (135-145) mmol/L Potassium 4.1 (3.3-5.1) mmol/L Chloride 107 (96-108) mmol/L Carbon Dioxide 19 L (22-29) mmol/L Anion Gap 20 (12-20) BUN 14 (9-16) mg/dL Creatinine 1.07 (0.5-1.4) mg/dL Estim Creat Clear Calc 116.5 Estimated GFR > 60 Random Glucose 102 (60-115) mg/dL Calcium 10.4 H (8.4-10.2) mg/dL Magnesium 2.0 (1.6-2.6) mg/dL Total Bilirubin 1.1 H (0.0-1.0) mg/dL AST 34 (5-37) U/L ALT 35 (0-40) U/L Alkaline Phosphatase 95 (39-117) U/L Troponin I High Sens < 2.7 (<3.5-35.0) ng/L Total Protein 8.5 H (6.5-8.0) g/dL Albumin 5.3 H (3.5-5.0) g/dL Influenza Type A (PCR) NEGATIVE (Negative) Influenza Type B (PCR) NEGATIVE (Negative) RSV RNA Qual (PCR) NEGATIVE (Negative) SARS-CoV-2 RNA (RT-PCR) NEGATIVE (Negative) Radiology Impression Discussion of test interpretation with radiology: I have reviewed the radiologist's reading. Discharge Plan Discharge Clinical Impression: Anxiety Patient Disposition: Home, Self-Care Instructions: Anxiety (ED) Additional Instructions: Take hydroxyzine 1 tablet 3 times a day as needed for anxiety and follow with your therapist/PCP Prescriptions: New hydroxyzine HCl 25 mg tablet 25 mg PO TID PRN (Reason: anxiety) Qty: 30 0RF No Action lumzcvdy-snimpxfuj-FB 3.5-10,000-1 mg/mL-unit/mL-% drops,suspension 4 drp otic (ear) left Q8H 10 Days Qty: 10 0RF ibuprofen 600 mg tablet 600 mg PO Q8H PRN (Reason: pain) Qty: 14 0RF hydroxyzine HCl 25 mg tablet 25 mg PO TID PRN (Reason: anxiety) Qty: 30 0RF amoxicillin-pot clavulanate 875-125 mg tablet 1 tab PO BID 7 Days Qty: 14 0RF ibuprofen 600 mg tablet 600 mg PO Q6H PRN (Reason: pain) Qty: 30 0RF acetaminophen [Tylenol Extra Strength] 500 mg tablet 500 mg PO Q6H PRN (Reason: pain) Qty: 30 0RF famotidine 40 mg tablet 40 mg PO DAILY Qty: 30 5RF Interventions: ED Discharge Assessment Last Done: 09/05/24 00:40 Discharge Date/Time: 09/05/24 00:41 Print Language: Tajik
--- NOTE | 2024-09-04 19:09 | ECG_ITS ---
Test Reason : sob Blood Pressure : / mmHG Vent. Rate : 078 BPM Atrial Rate : 078 BPM P-R Int : 170 ms QRS Dur : 092 ms QT Int : 356 ms P-R-T Axes : 038 -08 019 degrees QTc Int : 405 ms Normal sinus rhythm Normal ECG No previous ECGs available Referred By: Janice Worthington Electronically Signed By:MONSERRAT MURGUIA
[2024-09-04 19:32] LABS: MANUAL DIFF FLAG NO
[2024-09-04 19:46] LABS: Basophils Absolute Auto 0.1 X10*3/uL (0.0-0.2); Basophils Percent Auto 0.8 % (0-2); Eosinophils Absolute Auto 0.1 X10*3/uL (0.0-0.4); Eosinophils Percent Auto 0.8 % (0-4); Hematocrit 48.2 % (42.0-52.0); Imm Gran Abs Auto 0.03 X10*3/uL (0.00-0.03); Imm Gran Pct Auto 0.3 % (0.0-0.4); Lymphocytes Absolute Auto 1.7 X10*3/uL (1.2-4.9); Lymphocytes Percent Auto 19.2 % (20-40); Mean Corpuscular HGB Conc 35.3 g/dl (31.0-36.0); Mean Corpuscular Hemoglobin 27.4 pg (27.0-33.0); Mean Corpuscular Volume 77.6 fL (80.0-98.0); Monocytes Absolute Auto 0.7 X10*3/uL (0.1-1.2); Monocytes Percent Auto 8.2 % (2-11); Neutrophils Absolute Auto 6.3 x10*3/uL (2.0-8.3); Neutrophils Percent Auto 70.7 % (45-73); Platelet Count 223 X10*3/uL (160-400); Red Blood Count 6.21 X10*6/uL (4.60-5.80); Red Cell Distribution Width 13.4 % (11.0-16.0); White Blood Count 8.9 X10*3/uL (4.8-10.8)
[2024-09-04 19:47] LABS: Alanine Aminotransferase 35 U/L (0-40); Albumin Level 5.3 g/dL (3.5-5.0); Alkaline Phosphatase 95 U/L (39-117); Anion Gap 20 (12-20); Aspartate Amino Transferase 34 U/L (5-37); Bilirubin Total 1.1 mg/dL (0.0-1.0); Blood Urea Nitrogen 14 mg/dL (9-16); Calcium 10.4 mg/dL (8.4-10.2); Carbon Dioxide 19 mmol/L (22-29); Chloride 107 mmol/L (96-108); Creatinine Clr Calc Pharmacy 116.5; Estimated Glomerular Filt Rate > 60; Glucose Random 102 mg/dL (60-115); Potassium 4.1 mmol/L (3.3-5.1); Sodium 142 mmol/L (135-145); Total Protein 8.5 g/dL (6.5-8.0)
[2024-09-04 19:55] LABS: Troponin-I High Sensitivity < 2.7 ng/L (<3.5-35.0)
[2024-09-04 20:10] LABS: Influenza A PCR NEGATIVE (Negative); Influenza B PCR NEGATIVE (Negative); Resp Syncy Virus RNA Qual PCR NEGATIVE (Negative); SARS COV2 PCR INHOUSE NEGATIVE (Negative)
[2024-09-04 22:15] VITALS: BP 135/80; PULSE 78; RESP 16; TEMP 36.8; O2SAT 100
[2024-09-04] MEDS: LORazepam 1 MG TABLET PO (22:53)
[2024-09-04] MEDS: hydrOXYzine HCL 50 MG TABLET PO (23:26)
[2024-09-05 00:37] VITALS: BP 125/76; PULSE 69; RESP 19; TEMP 36.3; O2SAT 100
[2024-09-05 00:40] VITALS: BP 125/76; PULSE 69; RESP 19; TEMP 36.3; O2SAT 100
== END 2024-09-05 00:41 | disposition home or self-care (01) ==
PROVIDERS: Physician Assistant Medical; Emergency Provider Internal Medicine
DX: R06.02 Shortness of breath (principal); F41.9 Anxiety disorder, unspecified; Z03.818 Encounter for observation for suspected exposure to other biological agents ruled out; Z79.899 Other long term (current) drug therapy
CPT/HCPCS: 0241U; 36415; 71046; 80053; 83735; 84484; 85025; 93005; 99283; 99285

== ENCOUNTER → 2024-09-04 19:09 | Outpatient (BNV) | payer SELFPAY | PROVIDERS: Emergency Provider Internal Medicine; Visit Provider Internal Medicine | DX: R06.02 Shortness of breath (principal) | CPT/HCPCS: 93010 ==

== ENCOUNTER 2024-12-08 10:13 | Emergency (ER) | payer OTHER, SELFPAY ==
--- NOTE | ~2024-12-08 | XR_ITS ---
EXAMINATION: XR CHEST CLINICAL INFORMATION: dyspnea COMPARISON: September 04, 2024. TECHNIQUE: 2 views of the chest were obtained. FINDINGS: No consolidation, pleural effusion or pneumothorax. Cardiomediastinal silhouette is normal. Multilevel thoracic spondylosis. XR/XR chest 2V IMPRESSION: No acute airspace disease. Electronically signed by: Anil Marquez MD 12/08/2024 12:32 PM EST
[2024-12-08 11:51] VITALS: BP 122/94; PULSE 78; RESP 16; TEMP 36.5; O2SAT 100; BMI 27.7
--- NOTE | 2024-12-08 11:51 | ED.SOB ---
HPI - SOB/Dyspnea General Chief Complaint: Dyspnea Stated Complaint: SOB Time Seen by Provider: 12/08/24 18:44 Related Data Previous Rx's ?Medication ?Instructions ?Recorded ibuprofen 600 mg tablet 600 mg PO Q8H PRN pain #14 tabs 10/13/21 gzdlytvl-ejbgjxaje-ubjmfygrg 3.5 4 drp otic (ear) left Q8H 10 days 10/13/21 mg-10,000 unit/mL-1 % ear #10 mL drops,susp hydroxyzine HCl 25 mg tablet 25 mg PO TID PRN anxiety #30 tabs 03/29/23 famotidine 40 mg tablet 40 mg PO DAILY #30 tabs 04/22/23 acetaminophen 500 mg tablet 500 mg PO Q6H PRN pain #30 tabs 11/07/23 (Tylenol Extra Strength) amoxicillin 875 mg-potassium 1 tab PO BID 7 days #14 tabs 11/07/23 clavulanate 125 mg tablet ibuprofen 600 mg tablet 600 mg PO Q6H PRN pain #30 tabs 11/07/23 hydroxyzine HCl 25 mg tablet 25 mg PO TID PRN anxiety #30 tabs 09/05/24 Allergies Allergy/AdvReac Type Severity Reaction Status Date / Time No Known Allergies Allergy Verified 12/08/24 11:59 [facility] Past Medical History Medical History Dysphagia No known health problems Social History Social History Household Members: Family Alcohol intake: current Patient Tobacco Use Status: Never used Tobacco Substance Use Type: Marijuana Advance Directives: No Advance Directives Information Provided: No Physical Exam Vital Signs: Vital Signs: Last Vital Signs Temp 97.7 F 12/08/24 11:51 Pulse 78 12/08/24 11:51 Resp 16 12/08/24 11:51 BP 122/94 H 12/08/24 11:51 Pulse Ox 100 12/08/24 11:51 O2 Del Method Room Air 12/08/24 11:51 BMI result Body Mass Index 27.7 Course Course Course Narrative: This is a Rapid Medical Examination (RME) performed by Deven Worthington PA-C in triage. Full HPI, ROS, assessment and treatment plan per primary provider in the Main ED. 19 yo healthy male here for eval of difficulty taking a deep breath x3-4 months. seen here for same 4 mo ago, dx w/ anxiety and discharged w/ hydroxyzine which he has been taking without improvement. has not followed up w/ therapist in 4 yrs. denies tobacco use or vaping. does smoke marijuana. + lungs clear Plan: labs, ekg, cxr, viral swabs Reevaluation(s) Reevaluation #1: Patient left the emergency department before myself or any of the other clinicians could review or explain physical exam findings, test results, need or lack there of for additional testing, treatment options, or a treatment plan. Medical Decision Making Lab Data 12/08/24 12:14 12/08/24 12:14 Labs: Lab Results 12/08/24 Range/Units 12:14 WBC 11.3 H (4.8-10.8) X10*3/uL RBC 6.01 H (4.60-5.80) X10*6/uL Hgb 16.5 (14.0-18.0) g/dl Hct 47.5 (42.0-52.0) % MCV 79.0 L (80.0-98.0) fL MCH 27.5 (27.0-33.0) pg MCHC 34.7 (31.0-36.0) g/dl RDW 12.9 (11.0-16.0) % Plt Count 287 D (160-400) X10*3/uL MPV 9.3 L (9.4-12.4) fL Immature Gran % (Auto) 0.4 (0.0-0.4) % Neut % (Auto) 68.1 (45-73) % Lymph % (Auto) 20.4 (20-40) % [place] % (Auto) 9.2 (2-11) % Eos % (Auto) 1.2 (0-4) % Baso % (Auto) 0.7 (0-2) % Lymph # (Auto) 2.3 (1.2-4.9) X10*3/uL [place] # (Auto) 1.0 (0.1-1.2) X10*3/uL Eos # (Auto) 0.1 (0.0-0.4) X10*3/uL Baso # (Auto) 0.1 (0.0-0.2) X10*3/uL Abs Immat Gran (auto) 0.04 H (0.00-0.03) X10*3/uL Absolute Neuts (auto) 7.7 (2.0-8.3) x10*3/uL Absolute Nucleated RBC 0.000 (0.0-0.012) X10*3/uL Nucleated RBC % (auto) 0.0 (0.0-0.2) /100WBC PT 11.9 (10.9-12.4) SEC INR 1.0 (0.9-1.1) Sodium 141 (135-145) mmol/L Potassium 4.3 (3.3-5.1) mmol/L Chloride 103 (96-108) mmol/L Carbon Dioxide 25 (22-29) mmol/L Anion Gap 17 (12-20) BUN 12 (9-16) mg/dL Creatinine 0.95 (0.5-1.4) mg/dL Estim Creat Clear Calc 147.0 Estimated GFR > 60 Random Glucose 76 (60-115) mg/dL Calcium 10.1 (8.4-10.2) mg/dL Magnesium 2.3 (1.6-2.6) mg/dL Total Bilirubin 0.5 (0.0-1.0) mg/dL AST 33 (5-37) U/L ALT 38 (0-40) U/L Alkaline Phosphatase 89 (39-117) U/L Troponin I High Sens < 2.7 (<3.5-35.0) ng/L Total Protein 8.6 H (6.5-8.0) g/dL Albumin 5.0 (3.5-5.0) g/dL Influenza Type A (PCR) NEGATIVE (Negative) Influenza Type B (PCR) NEGATIVE (Negative) RSV RNA Qual (PCR) NEGATIVE (Negative) SARS-CoV-2 RNA (RT-PCR) NEGATIVE (Negative) Discharge Plan Discharge Clinical Impression: Shortness of breath Patient Disposition: Left W/O Completing Treatment Prescriptions: No Action ajbfixif-jzmtkcbso-PM 3.5-10,000-1 mg/mL-unit/mL-% drops,suspension 4 drp otic (ear) left Q8H 10 Days Qty: 10 0RF ibuprofen 600 mg tablet 600 mg PO Q8H PRN (Reason: pain) Qty: 14 0RF hydroxyzine HCl 25 mg tablet 25 mg PO TID PRN (Reason: anxiety) Qty: 30 0RF hydroxyzine HCl 25 mg tablet 25 mg PO TID PRN (Reason: anxiety) Qty: 30 0RF amoxicillin-pot clavulanate 875-125 mg tablet 1 tab PO BID 7 Days Qty: 14 0RF ibuprofen 600 mg tablet 600 mg PO Q6H PRN (Reason: pain) Qty: 30 0RF acetaminophen [Tylenol Extra Strength] 500 mg tablet 500 mg PO Q6H PRN (Reason: pain) Qty: 30 0RF famotidine 40 mg tablet 40 mg PO DAILY Qty: 30 5RF Discharge Date/Time: 12/08/24 20:06
--- NOTE | 2024-12-08 11:53 | ECG_ITS ---
Test Reason : CP Blood Pressure : */* mmHG Vent. Rate : 80 BPM Atrial Rate : 80 BPM P-R Int : 154 ms QRS Dur : 92 ms QT Int : 348 ms P-R-T Axes : 22 -30 13 degrees QTcB Int : 401 ms Normal sinus rhythm Left axis deviation Abnormal ECG When compared with ECG of 04-Sep-2024 19:15, No significant change was found Referred By: Janice Worthington Electronically Signed By: Nito Contreras
[2024-12-08 12:22] LABS: MANUAL DIFF FLAG NO
[2024-12-08 12:28] LABS: Basophils Absolute Auto 0.1 X10*3/uL (0.0-0.2); Basophils Percent Auto 0.7 % (0-2); Eosinophils Absolute Auto 0.1 X10*3/uL (0.0-0.4); Eosinophils Percent Auto 1.2 % (0-4); Hematocrit 47.5 % (42.0-52.0); Hemoglobin 16.5 g/dl (14.0-18.0); Imm Gran Abs Auto 0.04 X10*3/uL (0.00-0.03); Imm Gran Pct Auto 0.4 % (0.0-0.4); Lymphocytes Absolute Auto 2.3 X10*3/uL (1.2-4.9); Lymphocytes Percent Auto 20.4 % (20-40); Mean Corpuscular HGB Conc 34.7 g/dl (31.0-36.0); Mean Corpuscular Hemoglobin 27.5 pg (27.0-33.0); Mean Platelet Volume 9.3 fL (9.4-12.4); Monocytes Percent Auto 9.2 % (2-11); Neutrophils Absolute Auto 7.7 x10*3/uL (2.0-8.3); Neutrophils Percent Auto 68.1 % (45-73); Platelet Count 287 X10*3/uL (160-400); Red Blood Count 6.01 X10*6/uL (4.60-5.80); Red Cell Distribution Width 12.9 % (11.0-16.0); White Blood Count 11.3 X10*3/uL (4.8-10.8)
[2024-12-08 12:33] LABS: Prothrombin Time 11.9 SEC (10.9-12.4)
[2024-12-08 12:43] LABS: Alanine Aminotransferase 38 U/L (0-40); Alkaline Phosphatase 89 U/L (39-117); Anion Gap 17 (12-20); Aspartate Amino Transferase 33 U/L (5-37); Bilirubin Total 0.5 mg/dL (0.0-1.0); Blood Urea Nitrogen 12 mg/dL (9-16); Calcium 10.1 mg/dL (8.4-10.2); Carbon Dioxide 25 mmol/L (22-29); Chloride 103 mmol/L (96-108); Estimated Glomerular Filt Rate > 60; Glucose Random 76 mg/dL (60-115); Magnesium 2.3 mg/dL (1.6-2.6); Potassium 4.3 mmol/L (3.3-5.1); Sodium 141 mmol/L (135-145); Total Protein 8.6 g/dL (6.5-8.0)
[2024-12-08 13:03] LABS: Influenza A PCR NEGATIVE (Negative); Influenza B PCR NEGATIVE (Negative); Resp Syncy Virus RNA Qual PCR NEGATIVE (Negative); SARS COV2 PCR INHOUSE NEGATIVE (Negative)
[2024-12-08 13:07] LABS: Troponin-I High Sensitivity < 2.7 ng/L (<3.5-35.0)
--- NOTE | 2024-12-08 19:58 | PC.NURSE ---
pt called multiple times in [place] with no answer
== END 2024-12-08 20:06 | disposition left against medical advice (07) ==
LOC: HO.ED 20:03
PROVIDERS: Physician Assistant Medical; Emergency Provider Emergency Medicine
DX: R06.02 Shortness of breath (principal); F41.9 Anxiety disorder, unspecified; R07.89 Other chest pain; Z79.899 Other long term (current) drug therapy; Z03.818 Encounter for observation for suspected exposure to other biological agents ruled out
CPT/HCPCS: 0241U; 71046; 80053; 83735; 84484; 85025; 85610; 93005; 99283

== ENCOUNTER → 2024-12-08 11:53 | Outpatient (BNV) | payer OTHER, SELFPAY | PROVIDERS: Visit Provider Radiology Diagnostic Radiology | DX: R06.02 Shortness of breath (principal) | CPT/HCPCS: 71046 ==

== ENCOUNTER → 2024-12-08 11:53 | Outpatient (BNV) | payer OTHER, SELFPAY | PROVIDERS: Emergency Provider Emergency Medicine; Visit Provider Internal Medicine Cardiovascular Disease | DX: R94.31 Abnormal electrocardiogram [ECG] [EKG] (principal); R07.9 Chest pain, unspecified | CPT/HCPCS: 93010 ==